=== PATIENT | female | born 1935 | race Caucasian/White ===

== ENCOUNTER 2017-10-13 15:14 | Outpatient (CLI) | payer MEDICARE ==
--- NOTE | 2017-10-13 18:03 | RAD ---
THREE VIEWS LEFT KNEE: Comparison: None. History: Left knee pain for several months. FINDINGS: Three views of the left knee shows no evidence of acute fracture or dislocation. No degenerative saldivar ges are seen. No knee effusion is present. Vascular calcifications are present. IMPRESSION: No significant left knee abnormality. POS: [facility]
== END 2017-10-13 15:15 | disposition home or self-care (01) ==
LOC: SCSRAD 15:14
PROVIDERS: ATTEND Internal Medicine
DX: M25.562 Pain in left knee (principal)

== ENCOUNTER 2018-03-12 22:19 | Observation (INO) | payer MEDICARE ==
[2018-03-12 23:31] LABS: #Basophils 0.1 thou/uL (0.0-0.2); #Eosinphils 0.4 thou/uL (0.0-0.7); #Lymphocytes 2.2 thou/uL (1.20-3.40); #Monocytes 0.6 thou/uL (0.11-0.59); #Neutrophils 2.5 thou/uL (1.40-6.50); %Basophils 1.2 % (0.0-1.0); %Eosinophils 7.1 % (0.0-10.0); %Lymphocytes 38.1 % (21.0-51.0); %Monocytes 10.3 % (0.0-10.0); %Neutrophils 43.3 % (42.0-75.0); Hemoglobin 13.1 g/dL (12.0-16.0); Mean Corpuscular HGB CONC 35.3 g/dL (32.0-36.0); Mean Corpuscular Hemoglobin 32.2 pg (27.0-31.0); Mean Corpuscular Volume 91.1 fl (81.0-99.0); Mean Platelet Volume 7.7 fL (7.4-10.4); Platelet Count 197 thou/uL (130-400); RBC Distribution Width 11.3 % (11.5-14.5); Red Blood Cell (RBC) Count 4.06 mill/uL (4.20-5.40); White Blood Cell (WBC) Count 5.9 thou/uL (4.8-10.8)
--- NOTE | 2018-03-12 23:35 | CT ---
CT OF BRAIN PERFORMED WITHOUT CONTRAST ENHANCEMENT: 03/12/18 HISTORY: Headache. There is generalized ventricular and sulcal prominence. Decreased attenuation of the periventricular white matter is consistent with some chronic ischemic white matter change. There is no signs of intra cerebral hemorrhage or extra-axial fluid collections. The mastoid air cells are clear. There is mucos al change in the right maxillary sinus and a completely opacified left maxillary sinus. Also, changes in the region of the ethmoid air cells are seen. IMPRESSION: No acute intracranial abnormalities. POS: [facility]
[2018-03-12] MEDS ORDERED: Metoclopramide HCl 10 MG/2 ML VIAL ONE (23:36)
[2018-03-12] MEDS ORDERED: diphenhydrAMINE 50 MG/ML VIAL ONE (23:36)
[2018-03-12] MEDS ORDERED: methylPREDNISolone Sod Succ/PF 125 MG/2 ML VIAL ONE (23:36)
--- NOTE | 2018-03-12 23:41 | RAD ---
PORTABLE CHEST: 03/12/18 HISTORY: Chest pain. Elevated blood pressure. COMPARISON: 07/10/16 study. Heart size is enlarged. There are postop sternotomy changes. Chronic lung changes are present. The calista kee are demineralized. IMPRESSION: Cardiomegaly. No acute findings. POS: [facility]
[2018-03-12 23:43] LABS: ALT (SGPT) 18 U/L (8-55); AST (SGOT) 22 U/L (5-34); Albumin 3.9 g/dL (3.4-4.8); Alkaline Phosphatase 66 U/L (40-150); Anion Gap 13 mmol/L (10-20); BUN (Urea Nitrogen) 10 mg/dL (9.8-20.1); Bilirubin, Total 0.5 mg/dL (0.2-1.2); Calc. Creatinine Clearance 0 mL/min (70-130); Carbon Dioxide 25 mmol/L (23-31); Chloride 104 mmol/L (98-107); Estimated GFR-MDRD 62; Globulin 2.9 g/dL (2.4-3.5); Glucose 95 mg/dL (83-110); Potassium 4.2 mmol/L (3.5-5.1); Protein, Total 6.8 g/dL (6.0-8.3); Sodium 138 mmol/L (136-145)
[2018-03-12 23:45] LABS: CKMB 1.7 ng/mL (0-6.6); Troponin I Less than 0.010 ng/mL (< 0.028)
[2018-03-13 01:09] LABS: Bilirubin Negative (Negative); Blood, Urine Negative (Negative); Clarity Clear (Clear); Glucose, Urine (Dipstick) Negative (Negative); Leukocyte Small (Negative); Nitrite Negative (Negative); Protein, Urine (Dipstick) Negative (Neg-Trace); Urobilinogen 0.2 mg/dL (0.2-1.0)
[2018-03-13 01:12] LABS: Bacteria/HPF None Seen HPF (None Seen); Hyaline Casts/LPF NONE SEEN LPF (0-3 Hyaline); RBC/HPF None Seen HPF (0-3); Squamous Epithelial 0-3 HPF (0-3); WBC/HPF 0-3 HPF (0-3)
[2018-03-13 02:45] VITALS: BMI 22.4
[2018-03-13 02:52] LABS: Troponin I Less than 0.010 ng/mL (< 0.028)
--- NOTE | 2018-03-13 03:01 | PDOC.FPRHP ---
- History of Present Illness Chief Complaint: elevated BP, headache History of Present Illness: 82 yo F w/ PMH of cad, s/p cabg in 2001, prior LA after cabg, cva, chf ef 35-40 % presented to the ED with cc of elevated bp. Pt reports her BP has been elevated yesterday throughout the day in the 160s-190s systolic. She has been seeing Dr. Edwards in the OP setting who has been titrating her BP medications. With the elevated BP she does not a posterior headache that she describes as pressure like and rated it 7/10 originally and currently rates pain 2/10. She denies cp, sob, nvdc, weakness, numbness, tingling, changes in vision. Denies any other associated symptoms. Her headache was relieved by benadryl and an antiemetic. Her ct brain was negative for any acute intracranial process and cxr was negative for acute intrathroacic process. Her troponins have been negative X2. Denies recent swelling. ED Course: phenergan, benadryl, NS 500ml, methylprednisolone 125mg - Allergies/Adverse Reactions Allergies Allergy/AdvReac Type Severity Reaction Status Date / Time No Known Drug Allergies Allergy Verified 02/13/15 22:33 - Home Medications Medication Instructions Recorded Confirmed Type Aspirin 81 mg PO DAILY 05/21/14 03/13/18 History Calcium Carbonate [Calcium] 500 mg PO DAILY 05/21/14 03/13/18 History Carvedilol [Coreg] 12.5 mg PO BID 05/21/14 03/13/18 History Clopidogrel Bisulfate [Plavix] 75 mg PO DAILY 05/21/14 03/13/18 History Ezetimibe [Zetia] 10 mg PO DAILY 05/21/14 03/13/18 History Ubidecarenone [CoQ-10] 200 mg PO DAILY 05/21/14 03/13/18 History Vitamin B Complex [B Complex] 1 tablet PO DAILY 05/21/14 03/13/18 History Esomeprazole Magnesium [NexIUM] 20 mg PO 1200 02/13/15 03/13/18 History Loratadine [Claritin] 10 mg PO PRN PRN 10/17/15 03/13/18 History ALPRAZolam [Xanax] 0.25 mg PO Q8HR PRN 07/10/16 03/13/18 History Calcium Carbonate + Vit D 1 tab PO DAILY 07/10/16 03/13/18 History [Caltrate 600 + Vit D] Multivitamin With Minerals 1 tablet PO DAILY 07/10/16 03/13/18 History [Multivitamins with Minerals] Amlodipine Besylate [amLODIPine 2.5 mg PO HS #30 tablet 03/13/18 Rx Besylate] Lisinopril [Zestril] 10 mg PO BID #60 tab 03/13/18 Rx Rosuvastatin Calcium [Crestor] 40 mg PO MWF 03/13/18 03/13/18 History Rosuvastatin [Crestor] 20 mg PO SEEPHYS 03/13/18 03/13/18 History - History PMHx: HTN, HLD, CAD, CABG, h/o CVA, CHF EF 35-40%, PSHx: CABG, Laporotomy, Rt shoulder arthroscopy FHx: NA Social: Denies alcohol, tobacco - Review of Systems General: denies: fever/chills, weight/appetite/sleep changes, night sweats Eyes: denies: eye pain, vision changes ENT: denies: nasal congestion, rhinorrhea Respiratory: denies: cough, congestion, shortness of breath Cardiovascular: denies: chest pain, palpitation, edema Gastrointestinal: denies: nausea, vomiting, diarrhea, constipation Genitourinary: denies: incontinence, polyuria Skin: denies: lesions, jaundice Musculoskeletal: denies: pain, tenderness, arthritis/arthralgias Neurological: reports: other (headache). denies: numbness, syncope, seizure, weakness - Vital signs BP: 195/91 HR: 69 RR: 20 Tmax: 97.6 Pox: 96% on RA Wt: 65Kg - Physical Exam Constitutional: NAD, awake, alert and oriented HEENT: normocephalic and atraumatic, PERRLA, EOMI, conjunctiva clear, grossly normal vision, grossly normal hearing Neck: supple, trachea midline, no LAD, no JVD, no thyromegaly Chest: no-tender to palpation Heart: RRR, normal S1/S2, no murmurs/rubs/gallops, pulses present Lungs: CTAB, no respiratory distress, good air movement, no rales/rhonchi, no wheezing, no retractions Abdomen: soft, non-tender, bowel sounds present, no masses/distention Musculoskeletal: normal structure, normal tone, ROM grossly normal Neurological: no focal deficit Skin: good turgor, capillary refill <2 seconds, no jaundice Heme/Lymphatic: no unusual bruising or bleeding, no petechia Psychiatric: normal mood and affect FMR H&P: Results - Labs Result Diagrams: 03/13/18 05:27 03/13/18 05:27 Lab results: WBC 5.9 thou/uL (4.8-10.8) 03/12/18 23:19 Hgb 13.1 g/dL (12.0-16.0) 03/12/18 23:19 Hct 37.0 % (36.0-47.0) 03/12/18 23:19 MCV 91.1 fl (81.0-99.0) 03/12/18 23:19 Plt Count 197 thou/uL (130-400) 03/12/18 23:19 Neutrophils % 43.3 % (42.0-75.0) 03/12/18 23:19 Sodium 138 mmol/L (136-145) 03/12/18 23:19 Potassium 4.2 mmol/L (3.5-5.1) 03/12/18 23:19 Chloride 104 mmol/L (98-107) 03/12/18 23:19 Carbon Dioxide 25 mmol/L (23-31) 03/12/18 23:19 BUN 10 mg/dL (9.8-20.1) 03/12/18 23:19 Creatinine 0.88 mg/dL (0.6-1.1) 03/12/18 23:19 Glucose 95 mg/dL (83-110) 03/12/18 23:19 Calcium 9.0 mg/dL (7.8-10.44) 03/12/18 23:19 Total Bilirubin 0.5 mg/dL (0.2-1.2) 03/12/18 23:19 AST 22 U/L (5-34) 03/12/18 23:19 ALT 18 U/L (8-55) 03/12/18 23:19 Alkaline Phosphatase 66 U/L (40-150) 03/12/18 23:19 CK-MB (CK-2) 1.7 ng/mL (0-6.6) 03/12/18 23:19 B-Natriuretic Peptide 417.9 pg/mL (0-100) H 03/12/18 23:19 Serum Total Protein 6.8 g/dL (6.0-8.3) 03/12/18 23:19 Albumin 3.9 g/dL (3.4-4.8) 03/12/18 23:19 Urine Ketones Negative mg/dL (Negative) 03/13/18 00:55 Urine Blood Negative (Negative) 03/13/18 00:55 Urine Nitrite Negative (Negative) 03/13/18 00:55 Ur Leukocyte Esterase Small (Negative) H 03/13/18 00:55 Urine RBC None Seen HPF (0-3) 03/13/18 00:55 Urine WBC 0-3 HPF (0-3) 03/13/18 00:55 Ur Squamous Epith Cells 0-3 HPF (0-3) 03/13/18 00:55 Urine Bacteria None Seen HPF (None Seen) 03/13/18 00:55 - EKG Interpretation EKG: NSR, rate 62, Q waves inferior leads - Radiology Interpretation CT scan - head Status: report reviewed by me (No acute intracranial process) Chest x-ray Status: report reviewed by me (No acute intrathoracic process) FMR H&P: A/P - Problem List (1) Hypertensive urgency Current Visit: Yes Status: Acute Code(s): I16.0 - HYPERTENSIVE URGENCY (2) HTN (hypertension) Current Visit: No Status: Acute Code(s): I10 - ESSENTIAL (PRIMARY) HYPERTENSION (3) Headache Current Visit: Yes Status: Acute Code(s): R51 - HEADACHE (4) HFrEF (heart failure with reduced ejection fraction) Current Visit: Yes Status: Acute Code(s): I50.20 - UNSPECIFIED SYSTOLIC ( CONGESTIVE) HEART FAILURE (5) Dyslipidemia Current Visit: No Status: Acute Code(s): E78.5 - HYPERLIPIDEMIA, UNSPECIFIED (6) CAD (coronary artery disease) Current Visit: No Status: Acute Code(s): I25.10 - ATHSCL HEART DISEASE OF [place] CORONARY ARTERY W/O ANG PCTRS - Plan 1) HTN urgency: Vs severe uncontrolled hypertension. Elevated pressures today into the 190s, pt treated for headache only which resulted in decreased bp to the 150s systolic. Will continue to monitor pressures and give hydsralazine prn for bp >180/110. Trend troponins, negative X2 thus far. Cont home medications of lisinopril 7.5mg BID. 2)HTN: see above, continue home medications 3) Headache: possibly related to #1, tylenol prn for pain control. 4) HFrEF: continue home medicaiotns, BNP 400s 5) CAD: stable, continue home medications 6) HLD: home medications 7) PPx: SCDs and pepcid for DVT and GI ppx respectively 8) Code status: Pt wishes to be full code, spoke with pt regarding code status. Disposition/LOS: stable, </= 2 days FMR H&P: Upper Level - Pertinent history 82 yo CF with PMHx of HTN, CAD s/p CABG, CVA, and CHF with EF 35-40% presented to ED for elevated BP and worsening JOSE. Pt endorses difficulty with BP control over last month with titration of her meds by PCP during this time. Last change was yesterday when increased Lisinopril 2.5mg from 2 to 3 pills in AM. Taking 3 pills at night. She has been checking her BP multiple times per day over last few days which is causing some anxiety. Today, BP running in 190s/90s. Pt endorses 3 day hx of intermittent occipital JOSE that worsened today. 7/10 pain. Not relieved with Tylenol. She decided to go to ED for evaluation due to this. Denies chest pain today. Endorses mild chest discomfort yesterday that she says occurred following lifting multiple heavy objects. She has had a couple MIs and CABG in . Many stress tests and caths. Dr. Harper is her general science teacher. Pt s JOSE mostly resolved after IV Benadryl, methylprednisolone, and reglan. Observation overnight with expected 1-2 day stay. - Pertinent findings Gen: alert, pleasant, NAD CV: RRR, no m/r/g Lungs: CTAB, no rales/rhonchi, no increased WOB Abd: soft, NT/ND Ext: no edema - Plan Date/Time: 03/13/18 0259 1. HTN urgency. Initially improved after treating JOSE in ED. Will continue home meds and use prn hydralazine. Trend trops and repeat labs in AM to ensure no sign of end organ damage. Anxiety likely partial component. Discuss changes to BP regimen in AM. Will reach out to PCP, Dr. Jacobs, for more info. Lisinopril currently at 15 mg per day with current regimen. Observation with 1- 2 day stay likely. 2. Acute JOSE. Improved with IV meds. BP improved with tx. If recurs, will retreat and monitor. Continue working for BP improvement as well. 3. HTN. See above. 4. CAD. Pt did not endorse any chest pain today. Yesterday appears more MSK and very mild. Extensive heart history followed by Dr. Harpre. She endorses numerous false positive stress tests as well as not wanting to have a cardiac cath. EKG shows no ischemic changes. There seems to be no current indication for any testing. Will trend trops to ensure no damage from HTN urgency. 4. HFrEF. Home meds. BNP mildly elevated. No sign of fluid overload or exacerbation. 5. HLD. Home med I, Fidel Rose, have evaluated this patient and agree with findings/plan as outlined by international account representative resident. Pertinent changes/additions are listed here. Attending Addendum - Attending Addendum Date/Time: 03/13/18 7840 I personally evaluated the patient and discussed the management with Dr. Seals/ [place]. I agree with the History, Examination, Assessment and Plan documented above with any addition or exceptions noted below. Patient here with elevated blood pressures despite her titration of BP meds by outpatient PCP. She had increasing BP overnight and presented to ER with elevatd BP and headache that improved with Benadryl and Reglan. This morning, she feels well. We have discussed her case with her outpatient PCP and he has recommended discharge with increase in Lisinopril as well as addition of PRN Norvasc. Her enzymes are negative and EKG normal. BP improved this morning. No evidence of CHF exacerbation. She will be discharged home this morning with close follow up with PCP that has already been arranged.
[2018-03-13] MEDS ORDERED: Ondansetron HCl/PF 4 MG/2 ML Vial IVP PRN (03:19)
[2018-03-13] MEDS ORDERED: Acetaminophen 325 MG TAB PO PRN (03:19)
[2018-03-13] MEDS ORDERED: Ondansetron ODT 4 MG TAB PO PRN (03:19)
[2018-03-13] MEDS ORDERED: hydrALAZINE 20 MG/ML VIAL SLOW IVP PRN (03:22)
[2018-03-13] MEDS ORDERED: ALPRAZolam 0.25 MG TAB PO PRN (03:23)
[2018-03-13] MEDS ORDERED: Loratadine 10 MG TAB PO PRN (03:23)
[2018-03-13] MEDS ORDERED: Metoclopramide HCl 10 MG/2 ML VIAL IVP PRN (03:25)
[2018-03-13] MEDS ORDERED: diphenhydrAMINE 50 MG/ML VIAL IVP PRN (03:25)
[2018-03-13] MEDS ORDERED: Lisinopril 10 MG TAB PO SCH ×2 (03:45→09:00)
[2018-03-13 05:48] LABS: #Lymphocytes 0.8 thou/uL (1.20-3.40); #Monocytes 0.1 thou/uL (0.11-0.59); #Neutrophils 4.1 thou/uL (1.40-6.50); %Basophils 0.1 % (0.0-1.0); %Eosinophils 0.5 % (0.0-10.0); %Lymphocytes 15.6 % (21.0-51.0); %Monocytes 1.3 % (0.0-10.0); %Neutrophils 82.5 % (42.0-75.0); Hemoglobin 13.1 g/dL (12.0-16.0); Mean Corpuscular HGB CONC 33.6 g/dL (32.0-36.0); Mean Corpuscular Hemoglobin 31.3 pg (27.0-31.0); Mean Corpuscular Volume 93.2 fl (81.0-99.0); Mean Platelet Volume 7.7 fL (7.4-10.4); Platelet Count 224 thou/uL (130-400); RBC Distribution Width 11.8 % (11.5-14.5); Red Blood Cell (RBC) Count 4.18 mill/uL (4.20-5.40)
[2018-03-13 06:30] LABS: Anion Gap 8 mmol/L (10-20); BUN (Urea Nitrogen) 9 mg/dL (9.8-20.1); Calc. Creatinine Clearance 53 mL/min (70-130); Carbon Dioxide 26 mmol/L (23-31); Chloride 107 mmol/L (98-107); Estimated GFR-MDRD 64; Glucose 138 mg/dL (83-110); Potassium 3.9 mmol/L (3.5-5.1); Sodium 137 mmol/L (136-145)
[2018-03-13 06:35] LABS: Troponin I Less than 0.010 ng/mL (< 0.028)
[2018-03-13 08:23] VITALS: TEMP 98.4
[2018-03-13] MEDS ORDERED: Carvedilol 25 MG TAB PO SCH (09:00)
[2018-03-13] MEDS ORDERED: Calcium Carbonate + Vit D 1 TAB PO SCH (09:00)
[2018-03-13] MEDS ORDERED: Rosuvastatin 20 MG TAB PO SCH (09:00)
[2018-03-13] MEDS ORDERED: Famotidine 20 MG TAB PO SCH (09:00)
[2018-03-13] MEDS ORDERED: Multivitamin W/ Minerals 1 TAB PO SCH (09:00)
[2018-03-13] MEDS ORDERED: Folic Acid/Vit B Comp W-C PO SCH (09:00)
[2018-03-13] MEDS ORDERED: Clopidogrel Bisulfate 75 MG TAB PO SCH (09:00)
[2018-03-13] MEDS ORDERED: Calcium Carbonate 500 MG TAB PO SCH (09:00)
[2018-03-13] MEDS ORDERED: Ubidecarenone 50 MG CAP PO SCH (09:00)
[2018-03-13] MEDS ORDERED: Lisinopril 2.5 MG TAB PO SCH (09:00)
[2018-03-13] MEDS ORDERED: Ezetimibe 10 MG TAB PO SCH (09:00)
[2018-03-13 09:52] VITALS: BP 155/67
--- NOTE | 2018-03-13 13:54 | DIS-2 ---
DATE OF ADMISSION: 03/13/2018 DATE OF DISCHARGE: 03/13/2018 RESIDENT: Dr. Ba. ADMITTING ATTENDING: Dr. Oliver. DISCHARGE ATTENDING: Dr. Oliver. CONSULTATIONS: None. PROCEDURES: The patient underwent a brain CT on 03/12/2018 that showed no acute intracranial abnormalities. The patient also underwent a chest x-ray on 03/12/2018 that showed cardiomegaly , no acute findings. PRIMARY DIAGNOSES: 1. Hypertensive urgency. 2. Hypertension. 3. Headache. 4. Heart failure with reduced ejection fraction. 5. Dyslipidemia. 6. Coronary artery disease. DISCHARGE MEDICATIONS: 1. Vitamin B complex 1 tablet p.o. daily. 2. Calcium carbonate 500 mg p.o. daily. 3. Plavix 75 mg p.o. daily. 4. Aspirin 81 mg p.o. daily. 5. Zetia 10 mg p.o. daily. 6. CoQ10 200 mg p.o. daily. 7. Coreg 12.5 mg p.o. b.i.d. 8. Nexium 20 mg p.o. daily. 9. Claritin 10 mg p.o. p.r.n. 10. Calcium carbonate plus vitamin D one tab p.o. daily. 11. Multivitamin 1 tablet daily. 12. Xanax 0.25 mg p.o. q.8 hour p.r.n. 13. Rosuvastatin 40 mg p.o. on Friday, Friday, and Friday. 14. Amlodipine 2.5 mg p.o. at bedtime. 15. Lisinopril 10 mg p.o. b.i.d. 16. Rosuvastatin 20 mg p.o. on Friday, , and Friday. DISCONTINUED MEDICATIONS: Lisinopril 7.5 mg b.i.d. HISTORY OF PRESENT ILLNESS AND HOSPITAL COURSE: The patient is an 82-year-old female with past medical history of CAD status post CABG in 2001, prior myocardial infarction, CVA, and CHF with ejection fraction of 35%-40%, who presents to the ED with chief complaint of elevated BP. The patient reports that her blood pressure has been elevated since yesterday and throughout the day in the 160s to 190 systolic. She has been seeing Dr. Jacobs in the outpatient setting who has been titrating her blood pressure medications over the last month. With the elevated BP, she does note a posterior headache that she describes as pressure-like and rates 7/10 originally and currently rates pain 2/10. She denies any chest pain, shortness of breath, nausea, vomiting, diarrhea, constipation, weakness, numbness, tingling, changes in vision. She denies any other associated symptoms. Her headache was relieved by Benadryl and an antiemetic. Her CT brain was negative for any acute intracranial process and her chest x-ray was negative for acute intrathoracic process. Her troponins have been negative x2. She denies any recent swelling. In the ER, she was given Phenergan, Benadryl, and a normal saline 500 mL bolus and methylprednisolone 125 mg. During this hospitalization, the patient did not have any notable lab values as far as troponins go, she was negative x3. She did have a brain natriuretic peptide 417.9, which is elevated, as we do not have a good baseline, she has ranged from 200 and 300s previous to this. She did not have any signs of clinical heart failure and so it was determined at that time that she was not need to be treated for heart failure exacerbation. Patient's blood pressure ranged from 178 systolic down to 136 systolic on the day of discharge. The patient otherwise had no further complications. Her PCP, Dr. Jacobs was called during her hospitalization and was consulted as to what he would like to have for the management options going forward. It was decided between the primary team and Dr. Jacobs that we would increase her lisinopril as well as to give her amlodipine to begin with parameters at nighttime with close follow up with Dr. Jacobs as an outpatient. The patient otherwise understands that she does have anxiety about her heart disease, otherwise did not warrant any further workup at this time. Patient otherwise tolerated the hospitalization well and was discharged on appropriate condition. DISPOSITION: Stable. DISCHARGE INSTRUCTIONS: 1. Location: She will be discharged home in the care of herself. 2. Diet: Will be a heart healthy diet. 3. Activity will be as tolerated. 4. Follow up will be with her PCP, Dr. Jacobs in 3 days to ensure for the compliance of her blood pressure control as well as long-term control of her anxiety. KULDIP
--- NOTE | 2018-03-20 16:10 | EKG ---
Test Reason : Blood Pressure : / mmHG Vent. Rate : 062 BPM Atrial Rate : 062 BPM P-R Int : 140 ms QRS Dur : 094 ms QT Int : 440 ms P-R-T Axes : 040 010 040 degrees QTc Int : 446 ms Sinus rhythm with occasional Premature ventricular complexes and Fusion complexes Possible Left atrial enlargement Inferior infarct , age undetermined Abnormal ECG Confirmed by ELIZA MELO, ABHISHEK ([id number]), book or script editor RAFAT SAHU ([id number]) on 03/20/2018 4:09:46 PM Referred By: Confirmed By:ABHISHEK KAY MD
== END 2018-03-13 11:03 | disposition home or self-care (01) ==
LOC: SCSER 22:19 → 2SW 03-13 00:15
PROVIDERS: ADMIT Student in an Organized Health Care Education/Training Program; ATTEND Student in an Organized Health Care Education/Training Program
DX: I16.0 Hypertensive urgency (principal); I11.0 Hypertensive heart disease with heart failure; I50.20 Unspecified systolic (congestive) heart failure; E78.5 Hyperlipidemia, unspecified; I25.10 Atherosclerotic heart disease of native coronary artery without angina pectoris; I25.2 Old myocardial infarction; Z86.73 Personal history of transient ischemic attack (TIA), and cerebral infarction without residual deficits; Z79.82 Long term (current) use of aspirin; Z79.02 Long term (current) use of antithrombotics/antiplatelets; Z79.899 Other long term (current) drug therapy; Z95.1 Presence of aortocoronary bypass graft
CPT/HCPCS: 70450; 71045; 80048; 80053; 82553; 83880; 84484 ×3; 85025 ×2; 93005; 96365; 96375; 99285; G0378; 36415; 81003; 81015; J1200; J2765; J2930

== ENCOUNTER 2018-04-01 08:52 | Observation (INO) | payer MEDICARE ==
[2018-04-01 09:28] LABS: #Basophils 0.1 thou/uL (0.0-0.2); #Eosinphils 0.4 thou/uL (0.0-0.7); #Lymphocytes 1.8 thou/uL (1.20-3.40); #Monocytes 0.7 thou/uL (0.11-0.59); #Neutrophils 2.3 thou/uL (1.40-6.50); %Basophils 1.1 % (0.0-1.0); %Eosinophils 7.5 % (0.0-10.0); %Lymphocytes 33.9 % (21.0-51.0); %Monocytes 12.5 % (0.0-10.0); Hemoglobin 12.4 g/dL (12.0-16.0); Mean Corpuscular HGB CONC 33.5 g/dL (32.0-36.0); Mean Corpuscular Hemoglobin 31.5 pg (27.0-31.0); Mean Platelet Volume 6.8 fL (7.4-10.4); Platelet Count 283 thou/uL (130-400); RBC Distribution Width 11.8 % (11.5-14.5); Red Blood Cell (RBC) Count 3.92 mill/uL (4.20-5.40); White Blood Cell (WBC) Count 5.2 thou/uL (4.8-10.8)
[2018-04-01 09:40] LABS: Prothrombin Time 13.3 SEC (12.0-14.7)
[2018-04-01 09:41] LABS: PTT 36.6 SEC (22.9-36.1)
[2018-04-01 09:51] LABS: ALT (SGPT) 16 U/L (8-55); AST (SGOT) 19 U/L (5-34); Albumin 3.6 g/dL (3.4-4.8); Alkaline Phosphatase 72 U/L (40-150); Anion Gap 9 mmol/L (10-20); BUN (Urea Nitrogen) 12 mg/dL (9.8-20.1); Bilirubin, Total 0.5 mg/dL (0.2-1.2); CK (CPK) 43 U/L (29-168); Calc. Creatinine Clearance 0 mL/min (70-130); Carbon Dioxide 28 mmol/L (23-31); Chloride 105 mmol/L (98-107); Estimated GFR-MDRD 67; Globulin 2.9 g/dL (2.4-3.5); Glucose 91 mg/dL (83-110); Magnesium 2.1 mg/dL (1.6-2.6); Potassium 4.2 mmol/L (3.5-5.1); Protein, Total 6.5 g/dL (6.0-8.3); Sodium 138 mmol/L (136-145)
[2018-04-01 09:56] LABS: CKMB 0.9 ng/mL (0-6.6); Troponin I Less than 0.010 ng/mL (< 0.028)
[2018-04-01] MEDS ORDERED: Meclizine HCl 25 MG TAB ONE (10:39)
[2018-04-01] MEDS ORDERED: Carvedilol 6.25 MG TAB PO SCH (10:45)
--- NOTE | 2018-04-01 11:32 | CT ---
HEAD CT WITHOUT CONTRAST: COMPARISON: 03/12/18. HISTORY: Dizziness. TECHNIQUE: Noncontrast head CT is performed from the skull base to the skull vertex. FINDINGS: No parenchymal hemorrhage. No extraaxial hematoma. No midline shift. Basilar cisterns are patent. Age-appropriate atrophy. Chronic small-vessel ischemic changes of the white matter are again demons trated. Cortical ellsworth-white matter differentiation is preserved. Ventricles and sulci are patent and symmetric. Adequate aeration of the mastoid air cells. Stable maxillary sinus disease. Calvarium is intact. Cavernous carotid atherosclerosis is noted. IMPRESSION: 1. No significant interval change. 2. No acute intracranial process. 3. Chronic small-vessel ischemic changes of the white matter are noted. 4. Stable sinus disease. POS: [facility]
--- NOTE | 2018-04-01 11:39 | RAD ---
CHEST 1 VIEW: HISTORY: Dizziness. COMPARISON: 03/12/18. FINDINGS: Redemonstration of sternotomy wires. Atherosclerosis of the aorta is noted. Normal cardiac silhouet te. Pulmonary vessels and hilum are normal. Costophrenic angles are clear. Chronic changes in the lung parenchyma, without consolidation or mass. No pneumothorax or osseous abnormalities. IMPRESSION: 1. No significant interval change. 2. Chronic changes in the lung parenchyma. 3. Atherosclerosis. POS: [facility]
[2018-04-01] MEDS ORDERED: Iopamidol 370 76% 100 ML VIAL ONE (13:36)
[2018-04-01] MEDS ORDERED: Acetaminophen 500 MG TAB ONE (13:45)
--- NOTE | 2018-04-01 15:27 | PDOC.FPRHP ---
- History of Present Illness Chief Complaint: dizziness History of Present Illness: 82yo CF with pmhx sig for CAD s/p CABG, carotid stenosis, and prior CVA presents to [facility] for severe dizziness upon waking this morning. This was described as vertigo and was associated with nausea and palpitations. She also took her BP this am and noted it to be in the 170s systolic. She endorses recurrent attacks of vertigo and labile BPs over the last 2 months that have been concerning to her. She was hospitalized approx 3 wks prior for HTN urgency and BP meds were titrated. Since that time, pt has had recurrent and progressively worsening bouts of vertigo and exacerbations in her Bp despite medication adjustments made by pt and her PCP, Dr. Jacobs, as an outpatient. Pts hx is significant for prior Rt occipital CVA found subacutely by Dr. Lemus in 2013 after visual deficits. Today she denies any peripheral weakness, focal deficits, headache or syncopal event. Does state she feels fatigued with generalized weakness, and persistent vertigo which is refractory to meclizine tried in the ED for symptom relief. ED Course: Meclizine & coreg CT head negative - Allergies/Adverse Reactions Allergies Allergy/AdvReac Type Severity Reaction Status Date / Time No Known Drug Allergies Allergy Verified 04/01/18 15:28 - Home Medications Medication Instructions Recorded Confirmed Type Aspirin 81 mg PO HS 05/21/14 04/01/18 History Calcium Carbonate [Calcium] 500 mg PO DAILY 05/21/14 04/01/18 History Carvedilol [Coreg] 12.5 mg PO BID 05/21/14 04/01/18 History Clopidogrel Bisulfate [Plavix] 75 mg PO DAILY 05/21/14 04/01/18 History Ezetimibe [Zetia] 10 mg PO DAILY 05/21/14 04/01/18 History Ubidecarenone [CoQ-10] 200 mg PO DAILY 05/21/14 04/01/18 History Esomeprazole Magnesium [NexIUM] 40 mg PO 1600 02/13/15 04/01/18 History Loratadine [Claritin] 10 mg PO PRN PRN 10/17/15 04/01/18 History ALPRAZolam [Xanax] 0.25 mg PO Q8HR PRN 07/10/16 04/01/18 History Calcium Carbonate + Vit D 1 tab PO DAILY 07/10/16 04/01/18 History [Caltrate 600 + Vit D] Multivitamin With Minerals 1 tablet PO DAILY 07/10/16 04/01/18 History [Multivitamins with Minerals] Rosuvastatin Calcium [Crestor] 40 mg PO MWF 03/13/18 04/01/18 History Rosuvastatin [Crestor] 20 mg PO SEEPHYS 03/13/18 04/01/18 History Lisinopril [Zestril] 5 mg PO BID 04/01/18 04/01/18 History Vitamin B Complex 1 cap PO DAILY 04/01/18 04/01/18 History - History PMHx: 1) CAD s/p CABG, 2) Carotid stenosis- last study 2014 showing 50-69% blockage, 3) HTN, 4) HLD PSHx: 1) CABG- 3 vessel, 2) Bladder surgery, 3) Rt shoulder arthroscopy, 4) Open laparotomy from appendicitis FHx: Significant CAD in all siblings and both parents, CVA in a parent Social: Denies any tobacco, alcohol, or drugs - Review of Systems General: denies: fever/chills, weight/appetite/sleep changes Eyes: reports: vision changes. denies: eye pain ENT: denies: nasal congestion, rhinorrhea Respiratory: denies: cough, congestion, shortness of breath, exercise intolerance Cardiovascular: reports: palpitation. denies: chest pain, edema, paroxysmal nocturnal dyspnea, orthopnea Gastrointestinal: reports: nausea. denies: vomiting, diarrhea, constipation, abdominal pain Genitourinary: denies: incontinence, dysuria Skin: denies: rashes, lesions Musculoskeletal: denies: pain, tenderness, stiffness, swelling Neurological: reports: weakness (generalized), other (vertigo). denies: numbness, syncope, seizure Psychological: denies: anxiety, depression - Vital signs BP: [] HR: [] RR: [] Tmax: [] Pox: []% on [] Wt: [] - Physical Exam Constitutional: NAD, awake, alert and oriented, well developed HEENT: normocephalic and atraumatic, PERRLA, EOMI, conjunctiva clear, no scleral icterus, TM's clear and intact (mild fluid behind bilateral TM), grossly normal hearing, normal nasal mucosa, MMM, oropharynx clear, good dention Neck: supple, trachea midline, no LAD, no JVD, no thyromegaly -Neck: Rt carotid bruit -Chest: sternotomy scar Heart: RRR, pulses present, no edema -Heart: Split S2 Lungs: CTAB, no respiratory distress, good air movement, no rales/rhonchi, no wheezing Abdomen: soft, non-tender, bowel sounds present, no masses/distention Musculoskeletal: normal structure, normal tone, ROM grossly normal Neurological: no focal deficit, CN II-XII intact, normal sensation, DTRs 2+ -Neurological: Equivocal HINTS exam (negative head impulse test- no peripheral saccade). Faint rightward rotatory nystagmus on rightward gaze. Mild difficulty with left arm [id number]. No dysdiadochokinesia. Neg heel to loza. Skin: no rash/lesions, good turgor, capillary refill <2 seconds, no jaundice Heme/Lymphatic: no unusual bruising or bleeding, no purpura, no petechia, no LAD Psychiatric: normal mood and affect, good judgment and insight, intact recent and remote memory FMR H&P: Results - Labs Result Diagrams: 04/02/18 04:58 04/02/18 04:58 Lab results: WBC 5.2 thou/uL (4.8-10.8) 04/01/18 09:21 Hgb 12.4 g/dL (12.0-16.0) 04/01/18 09:21 Hct 36.9 % (36.0-47.0) 04/01/18 09:21 MCV 94.0 fl (81.0-99.0) 04/01/18 09:21 Plt Count 283 thou/uL (130-400) 04/01/18 09:21 Neutrophils % 45.0 % (42.0-75.0) 04/01/18 09:21 Sodium 138 mmol/L (136-145) 04/01/18 09:21 Potassium 4.2 mmol/L (3.5-5.1) 04/01/18 09:21 Chloride 105 mmol/L (98-107) 04/01/18 09:21 Carbon Dioxide 28 mmol/L (23-31) 04/01/18 09:21 BUN 12 mg/dL (9.8-20.1) 04/01/18 09:21 Creatinine 0.82 mg/dL (0.6-1.1) 04/01/18 09:21 Glucose 91 mg/dL (83-110) 04/01/18 09:21 Calcium 9.0 mg/dL (7.8-10.44) 04/01/18 09:21 Total Bilirubin 0.5 mg/dL (0.2-1.2) 04/01/18 09:21 AST 19 U/L (5-34) 04/01/18 09:21 ALT 16 U/L (8-55) 04/01/18 09:21 Alkaline Phosphatase 72 U/L (40-150) 04/01/18 09:21 Creatine Kinase 43 U/L (29-168) 04/01/18 09:21 CK-MB (CK-2) 0.9 ng/mL (0-6.6) 04/01/18 09:21 B-Natriuretic Peptide 246.8 pg/mL (0-100) H 04/01/18 09:21 Serum Total Protein 6.5 g/dL (6.0-8.3) 04/01/18 09:21 Albumin 3.6 g/dL (3.4-4.8) 04/01/18 09:21 Additional comment: BNP near baseline in the 200s. CE negative - EKG Interpretation EKG: NSR. Q waves in inferior leads, no acute ischemia. - Radiology Interpretation CT scan - head Status: report reviewed by me Additional comment: No acute intracranial abnormality FMR H&P: A/P - Problem List (1) Vertigo Current Visit: Yes Status: Acute Priority: High Code(s): R42 - DIZZINESS AND GIDDINESS (2) Hypertensive urgency Current Visit: Yes Status: Acute Priority: High Code(s): I16.0 - HYPERTENSIVE URGENCY (3) CAD (coronary artery disease) Current Visit: No Status: Chronic Priority: Low Code(s): I25.10 - ATHSCL HEART DISEASE OF [place] CORONARY ARTERY W/O ANG PCTRS Qualifiers: Coronary Disease-Associated Artery/Lesion type: bypass graft [place] vs. transplanted heart: [place] heart Associated angina: without angina Qualified Code(s): I25.810 - Atherosclerosis of coronary artery bypass graft(s) without angina pectoris (4) Dyslipidemia Current Visit: No Status: Chronic Code(s): E78.5 - HYPERLIPIDEMIA, UNSPECIFIED - Plan 1) Vertigo- - HINTS exam equivocal; R/O CVA with MRI, neuro checks q4h, fall precautions - meclizine prn - consider rehab for vertigo 2) Carotid bruit (right)- - h/o left sided nonsignificant carotid stenosis (last eval in 2014) - newly documented right bruit, check CTA Head & Neck 3) HTN Urgency- - Labile BPs in recent months & non-responsive to med changes, concern for TIAs vs CVAs - allow permissive HTN x 24hr after event, then medication adjustments 4) CAD s/p CABG- - trops neg, tele monitoring 5) HLD- - continue statin 6) Split S2- - ? h/o CHF, check Echo Disposition/LOS: 1-2 days; consider inpt rehab for vertigo FMR H&P: Upper Level - Plan Date/Time: 04/01/18 1523. I, [Nivia Garcia, DO], am the upper level resident. Attending Addendum - Attending Addendum Date/Time: 04/01/18 7698 I personally evaluated the patient and discussed the management with Dr. Garcia I agree with the History, Examination, Assessment and Plan documented above with any addition or exceptions noted below- 82 yo female with h/o CAD s/p CABG , prior CVA, and carotid stenosis presents with vertigo worsening over the last 2 weeks. Symptom worsened today and was associated with nausea and palpitations. Has also had some decreased appetite and fatigue. Hospitalized 2 weeks ago for hypertensive urgency and medications adjusted. Since then has had labile BP which have been being monitored by her PCP and medications adjusted. PMH/PSH/Meds/SH/ROS/ALL reviewed and agree with residents documentation. BP 149 /67 P 55 RR 16 Exam repeated by me and agree with residents findings. Labs: Hgb=12.4 BUN=12 Cr=0.5 MRI brain - no acute infarct. CTA neck and brain- moderate stenosis left carotid; calcified plaque on right @bifurcation A/P: 1) Vertigo- continue meclizine prn. 2) Hypertensive urgency- ROSALEE improved; continue home meds and adjust as indicated.
[2018-04-01] MEDS ORDERED: Sodium Chloride 0.9% 1,000 ML IV SCH (16:00)
[2018-04-01] MEDS ORDERED: Ondansetron HCl/PF 4 MG/2 ML Vial IVP PRN ×2 (16:00→16:07)
[2018-04-01] MEDS ORDERED: Ondansetron ODT 4 MG TAB SL PRN (16:00)
[2018-04-01] MEDS ORDERED: Ondansetron ODT 4 MG TAB PO PRN (16:07)
[2018-04-01] MEDS ORDERED: Acetaminophen 650 MG Suppository PR PRN (16:07)
[2018-04-01] MEDS ORDERED: Milk Of Magnesia 30 ML UDCUP PO PRN (16:07)
--- NOTE | 2018-04-01 16:13 | MRI ---
BRAIN MRI WITHOUT CONTRAST: HISTORY: Dizziness. Hypertension. Evaluate for CVA. COMPARISON: None. TECHNIQUE: A brain MRI is performed without intravenous Gadolinium administration. Multisequential, multiplanar imaging is performed. FINDINGS: No hemorrhage on the axial gradient echo sequence. No parenchymal mass, mass effect, or midline shift. Age-appropriate atrophy. Cortical ellsworth-white ma tter differentiation is preserved. Ventricles and sulci are patent and symmetric. Central arterial flow voids are maintained. Absent restricted diffusion. Adequate aeration of the mastoid air cells. Sinus disease is again noted. T2 and STIR hypointensity of the left maxillary sinus suggesting complex/inspissated mucus. Other etiologies cannot be exclud ed. Direct visualization is recommended. IMPRESSION: 1. Chronic small-vessel ischemic changes of the white matter. 2. Absent restricted diffusion. No acute infarction. 3. Left sinus opacification as above. Direct visualization is recommended. POS: HARJEET
--- NOTE | 2018-04-01 16:17 | CT ---
CT ANGIOGRAM OF THE HEAD CT ANGIOGRAM OF THE NECK 04/01/18 HISTORY: Dizziness. Tachycardia. Evaluate for CVA. COMPARISON: None. TECHNIQUE: CT angiogram of the head and neck is performed in the axial plane. Three dimensional reformatted imag es are submitted for interpretation. FINDINGS: Cortical ellsworth-white matter differentiation is preserved. No pathologic enhancement of the brain paren chyma. Chronic small vessel ischemic changes of the white matter identified. Intact calvarium. There is opacification of the left nasal cavity and left maxillary sinus. Hyperdens e material is noted suggesting inspissated mucus with possible secretions. Direct visualization is re commended given extension of the left nasal cavity. Air fluid level in the right maxillary sinus is n oted. Adequate aeration of the mastoid air cells. Aerodigestive tract is patent. No mucosal abnormality. Ep iglottis has a normal caliber. Pre-epiglottic fat is preserved. Midline fatty raphae of the tongue is also preserved. Symmetric attenuation of the cleidomastoid muscles. Symmetric attenuation of the carotid and submandi bular glands. Thyroid gland is unremarkable. No evidence of lymphadenopathy by size criteria. Cervical spine vertebral body height is maintained. There is no fracture. Varying degrees of central canal stenosis and foraminal narrowing on the basis of degenerative change. Upper mediastinum and lung apices are unremarkable. CT ANGIOGRAM: The aortic arch has appropriate enhancement and luminal diameter. There is atherosclerosis of the aor tic knob. RIGHT CAROTID: The origin of the right carotid artery has appropriate enhancement and luminal diameter. The right co mmon carotid artery has appropriate enhancement and luminal diameter. There is calcified plaque invol ving the right carotid bifurcation and proximal internal carotid artery. No evidence of high grade st enosis, based upon NASCET criteria. The mid to distal right internal carotid artery has appropriate e nhancement and luminal diameter. There is mild tortuosity of the distal right internal carotid. LEFT CAROTID: The origin of the left carotid artery has appropriate enhancement and luminal diameter. The left comm on carotid artery has appropriate enhancement and luminal diameter. There is calcified plaque with sh ort segment moderate stenosis of the proximal left internal carotid artery. The mid to distal left in ternal carotid artery has appropriate enhancement and luminal diameter. Vertebral arteries have appropriate enhancement and luminal diameter. The origin of both vertebral ar teries is unremarkable. The visualized subclavian arteries are unremarkable. CT ANGIOGRAM OF THE HEAD: The intracranial internal carotid arteries have appropriate enhancement and luminal diameter. There i s calcified plaque in both cavernous segments without significant stenosis. ANTERIOR CIRCULATION: There is symmetric enhancement and luminal diameter of the A1 and M1 segments. Proximal S2 segments a nd MCA branches are unremarkable. Both intracranial vertebral arteries are patent. PICA artery origins are unremarkable. Both vertebral arteries supply normal appearing basilar artery. The left and right P1 segments have symmetric enhan cement and luminal diameter. IMPRESSION: Extensive calcified plaque in the left carotid bifurcation proximal internal carotid artery. Evaluati on is limited by the degree of calcification but there is suggestion of possible short segment modera te stenosis based upon NASCET criteria. Better interrogation with MR angiogram of the neck is recomme nded given the degree of bulky calcification. POS: HARJEET
[2018-04-01] MEDS ORDERED: Diazepam 5 MG TAB PO PRN (17:11)
[2018-04-01] MEDS ORDERED: Non-Formulary Item 1 EACH (Loratadine [Claritin] 10 MG) PO PRN (17:12)
[2018-04-01] MEDS: Meclizine HCl 25 MG TAB PO PRN (17:45)
[2018-04-01] MEDS: ALPRAZolam 0.25 MG TAB PO PRN (20:24)
[2018-04-01] MEDS: Docusate 100 MG CAP PO SCH (20:24)
[2018-04-01] MEDS: Acetaminophen 325 MG TAB PO PRN (20:24)
[2018-04-01] MEDS ORDERED: Atorvastatin Calcium 40 MG TAB PO SCH (21:00)
[2018-04-01] MEDS ORDERED: Clopidogrel Bisulfate 75 MG TAB PO SCH (21:00)
[2018-04-01] MEDS ORDERED: Rosuvastatin 20 MG TAB PO SCH (21:00)
[2018-04-02 05:22] LABS: #Basophils 0.1 thou/uL (0.0-0.2); #Eosinphils 0.3 thou/uL (0.0-0.7); #Lymphocytes 2.3 thou/uL (1.20-3.40); #Monocytes 0.7 thou/uL (0.11-0.59); #Neutrophils 1.6 thou/uL (1.40-6.50); %Basophils 1.5 % (0.0-1.0); %Eosinophils 6.7 % (0.0-10.0); %Lymphocytes 45.8 % (21.0-51.0); %Monocytes 13.9 % (0.0-10.0); %Neutrophils 32.2 % (42.0-75.0); Hemoglobin 11.7 g/dL (12.0-16.0); Mean Corpuscular Hemoglobin 31.8 pg (27.0-31.0); Mean Corpuscular Volume 93.5 fl (81.0-99.0); Mean Platelet Volume 6.9 fL (7.4-10.4); Platelet Count 269 thou/uL (130-400); RBC Distribution Width 11.8 % (11.5-14.5); Red Blood Cell (RBC) Count 3.68 mill/uL (4.20-5.40); White Blood Cell (WBC) Count 4.9 thou/uL (4.8-10.8)
[2018-04-02 05:58] LABS: Anion Gap 7 mmol/L (10-20); BUN (Urea Nitrogen) 11 mg/dL (9.8-20.1); Calc. Creatinine Clearance 58 mL/min (70-130); Calcium 8.9 mg/dL (7.8-10.44); Carbon Dioxide 27 mmol/L (23-31); Chloride 107 mmol/L (98-107); Estimated GFR-MDRD 70; Glucose 85 mg/dL (83-110); Potassium 4.1 mmol/L (3.5-5.1); Sodium 137 mmol/L (136-145)
--- NOTE | 2018-04-02 07:02 | PDOC.FM ---
- Subjective Subjective: Patient doing well this AM. No significant overnight events. Symptoms appear to be positional per patient. She noted the vertigo to be worse when laying on her right side yesterday. Symptoms have improved with meclizine. Patient follows with neurologist yearly. She states that she gets vertigo every so often, but does not have it constantly. No associated tinnitus. - Objective MAR Reviewed: Yes Vital Signs & Weight: Vital Signs (12 hours) Temp Pulse Resp BP BP Pulse Ox 04/02/18 03:11 97.4 F L 60 16 120/54 L 94 L 04/01/18 23:14 97.7 F 56 L 16 119/56 L 93 L 04/01/18 20:00 97.6 F 66 16 150/67 H 95 04/01/18 19:19 95 04/01/18 19:10 97.6 F 66 16 150/67 H 95 Weight Weight 65.862 kg I&O: 03/31/18 04/01/18 04/02/18 06:59 06:59 06:59 Intake Total 559 Balance 559 Result Diagrams: 04/02/18 04:58 04/02/18 04:58 EKG Reviewed by me: Yes Radiology Reviewed by me: Yes <Beverly Brock - Last Filed: 04/02/18 09:13> - Objective Vital Signs & Weight: Vital Signs (12 hours) Temp Pulse Pulse Pulse Pulse Pulse Resp 04/02/18 11:14 97.8 F 58 L 16 04/02/18 08:00 97.8 F 69 16 04/02/18 07:30 61 66 75 59 L 04/02/18 07:12 97.8 F 69 16 04/02/18 03:11 97.4 F L 60 16 BP BP BP BP BP BP Pulse Ox 04/02/18 11:14 139/65 97 04/02/18 08:00 04/02/18 07:30 154/68 H 177/80 H 151/82 H 180/70 H 04/02/18 07:12 141/70 H 96 04/02/18 03:11 120/54 L 94 L Weight Admit Weight 63.276 kg Weight 65.862 kg I&O: 04/01/18 04/02/18 04/03/18 06:59 06:59 06:59 Intake Total 559 Balance 559 Result Diagrams: 04/02/18 04:58 04/02/18 04:58 <Trevor Oliver - Last Filed: 04/02/18 12:01> Phys Exam - Physical Examination Constitutional: NAD HEENT: PERRLA, moist MMs, sclera anicteric Neck: supple Respiratory: no wheezing, clear to auscultation bilateral Cardiovascular: RRR, no significant murmur Gastrointestinal: soft, no distention, positive bowel sounds Musculoskeletal: no edema, pulses present Neurological: non-focal, moves all 4 limbs Psychiatric: normal affect, A&O x 3 Skin: no rash, cap refill <2 seconds <Beverly Brock - Last Filed: 04/02/18 09:13> Dx/Plan (1) Hypertensive urgency Code(s): I16.0 - HYPERTENSIVE URGENCY Status: Acute (2) Vertigo Code(s): R42 - DIZZINESS AND GIDDINESS Status: Acute (3) HTN (hypertension) Code(s): I10 - ESSENTIAL (PRIMARY) HYPERTENSION Status: Chronic (4) CAD (coronary artery disease) Code(s): I25.10 - ATHSCL HEART DISEASE OF [place] CORONARY ARTERY W/O ANG PCTRS Status: Chronic QualifierTitle: Coronary Disease-Associated Artery/Lesion type: bypass graft [place] vs. transplanted heart: [place] heart Associated angina: without angina Qualified Code(s): I25.810 - Atherosclerosis of coronary artery bypass graft(s) without angina pectoris (5) Dyslipidemia Code(s): E78.5 - HYPERLIPIDEMIA, UNSPECIFIED Status: Chronic - Plan Plan: Hypertensive urgency - Labile BP - BP this AM 120/54 - Continue to monitor BP - Restart home medications and adjust as necessary Vertigo - Concern for posterior CVA, but seems consistent with BPP due to positional nature - Allow for permissive hypertension in first 24 hours - Meclizine PRN; pt states it has been helping - Equivocal HINTS exam - MRI brain showed no acute infarct - CTA neck showed extensive calcified plaque in left carotid bifurcation of proximal carotid artery. - MRA neck pending - Echo pending - Continue ASA, high dose statin, and clopidogrel - Attempt adriana's maneuver for symptom relief - Patient would benefit from PT - Consider inpatient rehab CAD s/p CABG - Continue home medications - Trop negative - Telemetry monitoring HLD - Continue high dose statin Hx of prior CVA - Continue home medications Dispo: Stable. Anticipate LOS <48 hours. CODE STATUS: FULL DVT PPX: Lovenox <Beverly Brock - Last Filed: 04/02/18 09:13> Attending Addendum - Attending Addendum Date/Time: 04/02/18 5538 I personally evaluated the patient and discussed the management with Dr. Brock. I agree with the History, Examination, Assessment and Plan documented above with any addition or exceptions noted below. Patient doing well, has some mild improvement in her vertigo. Awaiting MRA results of the neck. Will consult Rehab to see if she would be good candidate for gait training. Her exam is mixed for central versus peripheral causes. No evidence of CVA on MRI. Continue Meclizine and may need outpatient Neurology workup. <Trevor Oliver - Last Filed: 04/02/18 12:01>
[2018-04-02 07:39] VITALS: TEMP 97.8
[2018-04-02] MEDS ORDERED: Sodium Chloride 0.9% 1,000 ML IV SCH (08:45)
[2018-04-02] MEDS ORDERED: Sodium Chloride 0.9% 500 ML IVPB SCH (08:45)
[2018-04-02] MEDS ORDERED: Ubidecarenone 50 MG CAP PO SCH (09:00)
[2018-04-02] MEDS ORDERED: Aspirin 81 mg Enteric Coated Tablet PO SCH (09:00)
[2018-04-02] MEDS ORDERED: Fluticasone Propionate Nasal Spray 16 gm Bottle NASAL SCH (09:00)
[2018-04-02] MEDS ORDERED: Multivitamin W/ Minerals 1 TAB PO SCH (09:00)
[2018-04-02] MEDS ORDERED: Ezetimibe 10 MG TAB PO SCH (09:00)
[2018-04-02] MEDS ORDERED: Calcium Carbonate 500 MG TAB PO SCH (09:00)
[2018-04-02] MEDS ORDERED: Clopidogrel Bisulfate 75 MG TAB PO SCH ×2 (09:00→21:00)
[2018-04-02] MEDS ORDERED: Stress 600 With Zinc 1 TAB PO SCH (09:00)
[2018-04-02] MEDS ORDERED: Calcium Carbonate + Vit D 1 TAB PO SCH (09:00)
[2018-04-02] MEDS: Docusate 100 MG CAP PO SCH (09:16)
[2018-04-02] MEDS: Acetaminophen 325 MG TAB PO PRN (09:19)
[2018-04-02] MEDS: Meclizine HCl 25 MG TAB PO PRN (09:19)
[2018-04-02] MEDS: ALPRAZolam 0.25 MG TAB PO PRN (09:19)
[2018-04-02 10:13] VITALS: BMI 23.4
--- NOTE | 2018-04-02 16:51 | MRI ---
MRA OF THE NECK WITH AND WITHOUT IV CONTRAST 04/02/18 INDICATION: Left carotid stenosis evaluation. COMPARISON: Prior CTA evaluation of the head and neck dated 04/01/18. TECHNIQUE: Multiplanar and multisequence MRA images were obtained in the neck with and without contrast utilizin g 15 mL of Multihance. FINDINGS: There is some mild narrowing involving the proximal left ICA. There is moderate to severe narrowing i nvolving the origin of the right ECA. The right ICA appears widely patent throughout its visualized c ervical course. The left and right vertebral artery appear patent throughout its entire course. The v isualized aspects of the subclavian arteries appear widely patent. The left common carotid, brachioce phalic and left subclavian artery origins appear widely patent. IMPRESSION: No hemodynamically significant stenosis involving the left internal carotid artery. There is some mil d luminal caliber narrowing involving the proximal aspect of the left ICA likely related to atheroscl erotic plaque. There is moderate to severe narrowing involving the origin of the right ECA. POS: HARJEET
[2018-04-02] MEDS ORDERED: Rosuvastatin 10 MG TAB PO SCH (17:12)
[2018-04-02 18:45] VITALS: BP 152/67
[2018-04-03] MEDS ORDERED: Enoxaparin Sodium 40 MG/0.4 ML SYRINGE SC SCH (09:00)
--- NOTE | 2018-04-03 12:47 | DIS-2 ---
DATE OF ADMISSION: 04/01/2018 DATE OF DISCHARGE: 04/02/2018 ADMITTING ATTENDING: Dr. Kian Springer DISCHARGE ATTENDING: Dr. Trevor Oliver RESIDENT: Dr. Beverly Brock CONSULTS: None. PROCEDURES: 1. Chest x-ray: No significant interval change. Chronic changes in lung parenchyma. Atheroscler osis. 2. Brain CT: No significant interval change. No acute intracranial process. Chronic small vessel ischemic changes of the white matter noted. Stable sinus disease. 3. Brain MRI without contrast showed chronic small vessel ischemic changes of the white matter. Abs ent restricted diffusion. No acute infarct. There was a left sinus opacification. 4. Extensive calcified plaque from left carotid bifurcation proximal internal carotid artery. Evalu ation was limited by degree of calcification, but there is suggestion of possible short segment moder ate stenosis. 5. Neck MRA. No hemodynamically significant stenosis involving left internal carotid artery. There is some mild luminal caliber narrowing involving proximal aspect of left ICA likely related to ather osclerotic plaque. There is moderate to severe narrowing involving the origin of the right ICA. PRIMARY DIAGNOSES: 1. Hypertensive urgency. 2. Vertigo, likely benign paroxysmal positional vertigo. SECONDARY DIAGNOSES: 1. Hypertension. 2. Coronary artery disease. 3. Dyslipidemia. DISCHARGE MEDICATIONS: 1. Meclizine 25 mg oral every 8 hours as needed. 2. Calcium carbonate 500 mg oral daily. 3. Clopidogrel bisulfate 75 mg oral daily. 4. Aspirin 81 mg oral at bedtime. 5. Ezetimibe 10 mg oral daily. 6. CoQ10 200 mg oral daily. 7. Carvedilol 12.5 mg oral twice daily. 8. Esomeprazole, magnesium 40 mg oral daily. 9. Loratadine 10 mg oral as needed. 10. Calcium carbonate plus vitamin D 1 tablet p.o. daily. 11. Multivitamin with minerals 1 tablet oral daily. 12. Alprazolam 0.25 mg oral every 8 hours as needed. 13. Rosuvastatin calcium 40 mg oral Friday, Friday, and Friday. 14. Simvastatin 20 mg oral Friday, , Friday, Friday. 15. Vitamin B complex 1 capsule oral daily. 16. Lisinopril 5 mg oral twice daily. DISCONTINUED MEDICATIONS: None. HISTORY OF PRESENT ILLNESS AND HOSPITAL COURSE: This is an 82-year-old female with past medical hist ory significant for coronary artery disease, status post CABG, carotid stenosis and prior CVA who pre sents for severe dizziness upon walking this a.m. This was described as vertigo and was associated w ith nausea and palpitations. She also took her blood pressure the morning of admission and noted to be in the 170 systolic. The patient did endorses recurrent attacks of vertigo and elevated blood pre ssures over the last 2 months that have been concerning. She was hospitalized approximately 3 weeks prior for hypertensive urgency and blood pressure meds were titrated. Since that time, the patient h as had recurrent progressively worsening bouts of vertigo and exacerbation. Her blood pressure medic ation adjustments made by the patient and her PCP, Dr. Jacobs, as an outpatient. The patient's his tory is significant for prior right occipital CVA found subacutely by Dr. Lemus in 2013 after visua l deficits. The day of admission, she denied any peripheral weakness, focal deficits, headaches or s yncopal events. She does state she feels fatigued with generalized weakness and persistent vertigo w hich is refractory to meclizine at the time of admission. The patient remained stable throughout the course of her hospital stay. She has continued on meclizi ne and her symptoms did improve over the course of the next day. Of note, the patient states that wh en at rest she does not have vertigo symptoms. However, when she moves her head positionally, partic ularly to the right she notes that the symptoms appear to be much more severe. Several studies were performed to rule out posterior stroke as the patient does have a history of prior CVA, a brain CT, M RI without contrast, and CT standing [place] of [place] angio with contrast and neck MRA were performed, all whi ch were negative for evidence of stroke. The patient's symptoms did improve. It was recommended kandis t the patient be admitted to inpatient rehab for continued gait training and strengthening. However, Physical Therapy did see her during her hospitalization and discharged her to the walking program. Thus, the patient was not able to proceed with inpatient rehab. However, a prescription was given fo r the patient to do outpatient physical therapy so that she could continue to have these services whi le at home. This was voiced with the patient and she understood and [facility]. The patient was advised to follow closely with her primary care [facility] to have her vertigo fully evaluated. She may benefit from physical therapy specifically for vert igo. DISPOSITION: Stable. DISCHARGE INSTRUCTIONS: 1. Location: Home with PT. 2. Diet: Heart healthy diet. 3. Activity as tolerated. 4. The patient is to follow up with Dr. Jacobs, her primary care physician within 7 days of discha rge from the hospital. In addition, she is advised to schedule an appointment with Dr. Lemus, her neurologist, to be evaluated for recent symptoms and to notify him of the updates from this hospitali zation. Patient was understanding and agreeable with the plan.
== END 2018-04-02 14:46 | disposition home or self-care (01) ==
LOC: ERS 08:52 → 2SE 14:08
PROVIDERS: ADMIT Family Medicine; ATTEND Family Medicine
DX: R42 Dizziness and giddiness (principal); I25.10 Atherosclerotic heart disease of native coronary artery without angina pectoris; I16.0 Hypertensive urgency; I10 Essential (primary) hypertension; I65.23 Occlusion and stenosis of bilateral carotid arteries; E78.5 Hyperlipidemia, unspecified; Z86.73 Personal history of transient ischemic attack (TIA), and cerebral infarction without residual deficits; Z79.82 Long term (current) use of aspirin; Z79.02 Long term (current) use of antithrombotics/antiplatelets; Z79.899 Other long term (current) drug therapy; Z95.1 Presence of aortocoronary bypass graft
CPT/HCPCS: 70450; 70496; 70498; 70549; 70551; 71045; 80048; 80053; 82550; 82553; 83735; 83880; 84484; 85025 ×2; 85610; 85730; 93005; 93306; 96360; 96361; 97116; 97139 ×3; 97530; 97535; 99285; G0378; G8978; G8979; G8980; G8987; G8988; G8989; 36415; G8996-GN-CH; G8997-GN-CH; G8998-GN-CH

== ENCOUNTER 2018-10-05 18:28 | Emergency (ER) | payer MEDICARE | END 2018-10-05 19:15 | disposition home or self-care (01) | LOC: SCSER 18:28 | DX: I10 Essential (primary) hypertension (principal); I25.2 Old myocardial infarction; I25.10 Atherosclerotic heart disease of native coronary artery without angina pectoris; E78.5 Hyperlipidemia, unspecified; Z86.73 Personal history of transient ischemic attack (TIA), and cerebral infarction without residual deficits; F41.9 Anxiety disorder, unspecified; Z79.899 Other long term (current) drug therapy; Z79.82 Long term (current) use of aspirin | CPT/HCPCS: 99283 ==

== ENCOUNTER 2019-03-09 09:03 | Observation (INO) | payer MEDICARE ==
--- NOTE | 2019-03-09 09:27 | CT ---
CT Brain WO Con: 03/09/2019 9:14 AM CLINICAL HISTORY: Stroke protocol with left-sided weakness that began at 2300 hours last night. IMAGING TECHNIQUE: Multiple CT images were obtained of the brain without IV contrast. COMPARISON: CT the brain dated April 01, 2018 FINDINGS: Infarct: No acute infarct evident. Hemorrhage: None. Hydrocephalus: None.. Basal cisterns: Normal. Cerebral parenchyma: There is stable moderate chronic small vessel white matter ischemic change.. Midline shift: None. Cerebellum: Normal. Brainstem: Normal. OTHER: Calvarium: Normal. Visualized Paranasal sinuses: There is opacity present within the left ethmoid air cells as well as m axillary sinuses.. Extracranial soft tissues:Normal IMPRESSION: 1. No acute intracranial abnormality. 2. Stable moderate chronic small vessel white matter ischemic change. 3. Mild paranasal sinus disease 4. Findings called to Dr. Mcgarry at 9:22 AM on March 09, 2019
[2019-03-09 09:31] LABS: #Eosinphils 0.5 thou/uL (0.0-0.7); #Lymphocytes 1.7 thou/uL (1.20-3.40); #Monocytes 0.6 thou/uL (0.11-0.59); #Neutrophils 3.2 thou/uL (1.40-6.50); %Basophils 0.7 % (0.0-1.0); %Eosinophils 7.8 % (0.0-10.0); %Lymphocytes 28.4 % (21.0-51.0); %Monocytes 9.3 % (0.0-10.0); %Neutrophils 53.7 % (42.0-75.0); Hemoglobin 12.8 g/dL (12.0-16.0); Mean Corpuscular HGB CONC 32.2 g/dL (32.0-36.0); Mean Corpuscular Hemoglobin 31.3 pg (27.0-31.0); Mean Corpuscular Volume 97.3 fL (78.0-98.0); Mean Platelet Volume 7.9 fL (7.4-10.4); Platelet Count 247 thou/uL (130-400); RBC Distribution Width 11.9 % (11.5-14.5); Red Blood Cell (RBC) Count 4.09 mill/uL (4.20-5.40)
[2019-03-09 09:34] LABS: PTT 31.7 SEC (22.9-36.1); Prothrombin Time 13.5 SEC (12.0-14.7)
--- NOTE | 2019-03-09 09:50 | CT ---
CTA of the head with and without IV contrast and 3-D reformatted imaging. CTA of the neck with IV contrast and 3-D reformatted imaging 3 D Volume Rendering: DATE: 03/09/2019 9:15 AM HISTORY: Altered mental status, stroke COMPARISON: None FINDINGS: Right: CCA:Mild stenosis distally due to calcific plaque ICA: Limited by degree of motion. Calcific plaque at the bulb results in mild stenosis. Mild calcific ation, within the distal, intracranial aspect. MCA:No significant stenosis. LINDA:No significant stenosis. TRACTOR CRANE OPERATOR:No significant stenosis. LEFT: CCA:Moderate to severe stenosis at the distal aspect, just proximal to the bulb as result of bulky ca lcific plaque ICA:Moderate focal stenosis of the carotid bulb. Prominent distortion by motion. Mild calcific plaque at the distal, intracranial aspect MCA:No significant stenosis. LINDA:No significant stenosis. TRACTOR CRANE OPERATOR:No significant stenosis. Vertebrobasilar System: Left Vertebral:No significant stenosis. Right Vertebral:No significant stenosis. Basilar:No significant stenosis. IMPRESSION: Scattered atherosclerotic disease of the neck, and skull base, most pronounced at the distal left CCA , and left carotid bulb, with moderate to severe focal stenosis. Telephone call findings placed to ER physician Ken Mcgarry, 0940 hours. Code CR
[2019-03-09 09:56] LABS: ALT (SGPT) 14 U/L (8-55); AST (SGOT) 21 U/L (5-34); Albumin 3.7 g/dL (3.4-4.8); Alkaline Phosphatase 94 U/L (40-150); Anion Gap 13 mmol/L (10-20); BUN (Urea Nitrogen) 13 mg/dL (9.8-20.1); Bilirubin, Total 0.3 mg/dL (0.2-1.2); CK (CPK) 109 U/L (29-168); Calc. Creatinine Clearance 0 mL/min (70-130); Calcium 9.3 mg/dL (7.8-10.44); Carbon Dioxide 21 mmol/L (23-31); Chloride 108 mmol/L (98-107); Estimated GFR-MDRD 55; Globulin 3.3 g/dL (2.4-3.5); Glucose 136 mg/dL (83-110); Potassium 4.1 mmol/L (3.5-5.1); Sodium 138 mmol/L (136-145)
--- NOTE | 2019-03-09 10:10 | RAD ---
PA AND LATERAL CHEST: History: Facial droop. Altered mental status. Comparison: 04-01-18 FINDINGS: Heart size is enlarged. There are post op sternotomy changes. Lungs are clear of any infiltrative pro cess. Bones appear demineralized. IMPRESSION: 1. Mild cardiomegaly. 2. No active intrathoracic disease. POS: [facility]
[2019-03-09] MEDS ORDERED: Aspirin Chewable 81 MG TAB ONE (10:25)
--- NOTE | 2019-03-09 10:47 | PDOC.FPRHP ---
- History of Present Illness Chief Complaint: Left facial weakness History of Present Illness: This is an 83 yo female with a pmh of CVA, CAD, HTN, HLD who presented to the ed with a cc of left sided lip swelling and numbness. She reports this started this morning, last normal was last night at 2230. She states calling the dentist and they advised her come into the hospital. She denies chest pain, sob , palpitations. She denies any other bodily weakness but does report generalized weakness due to not exercising. She reports increased problems with her BP in that they are elevated with SBP in the 200s at time. ED Course: Aspirin 324mg - Allergies/Adverse Reactions Allergies Allergy/AdvReac Type Severity Reaction Status Date / Time No Known Drug Allergies Allergy Verified 04/01/18 15:28 - Home Medications Medication Instructions Recorded Confirmed Type Aspirin 81 mg PO HS 05/21/14 03/09/19 History Carvedilol [Coreg] 12.5 mg PO BID 05/21/14 03/09/19 History Clopidogrel Bisulfate [Plavix] 75 mg PO DAILY 05/21/14 03/09/19 History Esomeprazole Magnesium [NexIUM] 40 mg PO DAILY 02/13/15 03/09/19 History ALPRAZolam [Xanax] 0.25 mg PO BID 07/10/16 03/09/19 History Rosuvastatin Calcium [Crestor] 20 mg PO MWF 03/13/18 03/09/19 History Lisinopril [Zestril] 7.5 mg PO BID 04/01/18 03/09/19 History - History PMHx: CAD, CVA, HTN, HLD, anxiety, GERD PSHx: CABG, EX lap for appendendectomy 1949, bladder surgery, rotator cuff FHx: Heart disease, brother has had 3 cardiac bypass Social: Minimal smoking history in college, denies D/A - Review of Systems General: denies: fever/chills, weight/appetite/sleep changes, night sweats, fatigue Eyes: denies: eye pain, vision changes ENT: reports: nasal congestion, rhinorrhea Respiratory: denies: cough, shortness of breath Cardiovascular: denies: chest pain, palpitation Gastrointestinal: denies: nausea, vomiting, diarrhea Skin: denies: rashes, lesions Musculoskeletal: denies: pain, tenderness, stiffness Neurological: reports: numbness, weakness. denies: syncope, seizure Psychological: reports: anxiety. denies: depression - Vital signs BP: 150/62 HR: 69 RR: 16 Tmax: 98.0 Pox: 69% on ra Wt: 61 kg - Physical Exam Constitutional: NAD, awake, alert and oriented, well developed HEENT: normocephalic and atraumatic, PERRLA, EOMI, conjunctiva clear, grossly normal hearing, MMM Neck: supple, FROM, trachea midline, no LAD, no JVD, no bruits Chest: no-tender to palpation, no lesions, other (Central scar from CABG) Heart: RRR, normal S1/S2, no murmurs/rubs/gallops, pulses present Lungs: CTAB, no respiratory distress, good air movement Abdomen: soft, non-tender, bowel sounds present, no masses/distention Musculoskeletal: normal structure, normal tone, ROM grossly normal Neurological: no focal deficit, CN II-XII intact, normal sensation, DTRs 2+ Skin: no rash/lesions, good turgor, capillary refill <2 seconds, no jaundice Heme/Lymphatic: no unusual bruising or bleeding, no purpura, no petechia Psychiatric: normal mood and affect, good judgment and insight, intact recent and remote memory FMR H&P: Results - Labs Result Diagrams: 03/09/19 09:13 03/10/19 04:43 Lab results: WBC 6.0 thou/uL (4.8-10.8) 03/09/19 09:13 Hgb 12.8 g/dL (12.0-16.0) 03/09/19 09:13 Hct 39.7 % (36.0-47.0) 03/09/19 09:13 MCV 97.3 fL (78.0-98.0) 03/09/19 09:13 Plt Count 247 thou/uL (130-400) 03/09/19 09:13 Neutrophils % 53.7 % (42.0-75.0) 03/09/19 09:13 Sodium 138 mmol/L (136-145) 03/09/19 09:13 Potassium 4.1 mmol/L (3.5-5.1) 03/09/19 09:13 Chloride 108 mmol/L (98-107) H 03/09/19 09:13 Carbon Dioxide 21 mmol/L (23-31) L 03/09/19 09:13 BUN 13 mg/dL (9.8-20.1) 03/09/19 09:13 Creatinine 0.97 mg/dL (0.6-1.1) 03/09/19 09:13 Glucose 136 mg/dL (83-110) H 03/09/19 09:13 Calcium 9.3 mg/dL (7.8-10.44) 03/09/19 09:13 Total Bilirubin 0.3 mg/dL (0.2-1.2) 03/09/19 09:13 AST 21 U/L (5-34) 03/09/19 09:13 ALT 14 U/L (8-55) 03/09/19 09:13 Alkaline Phosphatase 94 U/L (40-150) 03/09/19 09:13 Creatine Kinase 109 U/L (29-168) 03/09/19 09:13 Serum Total Protein 7.0 g/dL (6.0-8.3) 03/09/19 09:13 Albumin 3.7 g/dL (3.4-4.8) 03/09/19 09:13 - Radiology Interpretation Chest x-ray Status: report reviewed by me (No acute cardiopulmonary processes) CT scan - head Status: report reviewed by me (CTA Scattered atherosclerotic disease of the neck , and skull base, most pronounced at the distal left CCA , and left carotid bulb , with moderate to severe focal stenosis.) Other Status: report reviewed by me (CT head wo contrast 1. No acute intracranial abnormality. 2. Stable moderate chronic small vessel white matter ischemic change. 3. Mild paranasal sinus disease) FMR H&P: A/P - Problem List (1) TIA (transient ischemic attack) Current Visit: No Status: Acute Code(s): G45.9 - TRANSIENT CEREBRAL ISCHEMIC ATTACK, UNSPECIFIED (2) HFrEF (heart failure with reduced ejection fraction) Current Visit: No Status: Acute Code(s): I50.20 - UNSPECIFIED SYSTOLIC ( CONGESTIVE) HEART FAILURE (3) Vertigo Current Visit: No Status: Acute Priority: High Code(s): R42 - DIZZINESS AND GIDDINESS (4) CAD (coronary artery disease) Current Visit: No Status: Chronic Priority: Low Code(s): I25.10 - ATHSCL HEART DISEASE OF [place] CORONARY ARTERY W/O ANG PCTRS Qualifiers: Coronary Disease-Associated Artery/Lesion type: bypass graft [place] vs. transplanted heart: [place] heart Associated angina: without angina Qualified Code(s): I25.810 - Atherosclerosis of coronary artery bypass graft(s) without angina pectoris (5) Dyslipidemia Current Visit: No Status: Chronic Code(s): E78.5 - HYPERLIPIDEMIA, UNSPECIFIED (6) HTN (hypertension) Current Visit: No Status: Chronic Code(s): I10 - ESSENTIAL (PRIMARY) HYPERTENSION - Plan This is an 83 yo female with a pmh of HTN, HLD, CAD s/p CABG, CVA Concern for TIA -Admit to stroke obs -CT head shows no hemorrhagic changes -CTA head/neck shows left CCA and carotid bulb with atherosclerotic disease and stenosis -Outside TPA window -Pending MRI and Echo CAD w/ hx of CABG -Continue home aspirin, plavix, statin HTN -Continue home meds -Touch base with Dr. Jacobs, PCP regarding HTN HLD -As above Hx of CVA -As above Code: Full Prophylaxis: SCDs Family: none at bedside Diet: heart healthy Disposition: home in 1-2 days FMR H&P: Upper Level - Pertinent history HPI 83 y/o F with hx/o CABG, CVA presenting to ED with facial numbness. States it began during the night ~12hrs ago and described as numbness on her L upper and lower lips. She does not have dysphagia, extremity weakness, altered mentation, or difficulty ambulating. She denies recent sickness. No insect stings/bites or new food tried. REVIEW OF SYSTEMS: Gen: no fever, chills, or sweats, no unexplained wt change Neuro: no headaches, POS numbness/tingling, no weakness Eyes: no visual changes ENT: no hearing changes, no sore throat, no runny nose Resp: no cough, no SOB, no wheeze Card: no chest pain, no palpitations GI: no appetite change, no diarrhea or constipation, no nausea/vomiting, no blood in stool MSK: no myalgias, no joint pain/stiffness Heme: no frequent/easy bleeding Skin: no rash, no erythema Psych: no depression - Pertinent findings PHYSICAL EXAMINATION: General: NAD, alert and oriented x3 HEENT: small 5mm superficial ulcer in L inner buccal membrane. mild edema L lips and cheek. Heart/Cardiovascular System: No r/m/g. RRR. Cap refill < 3 seconds, good pulses in all extremities Lungs/Respiratory System: clear to auscultation bilaterally. No increased work of breathing. Room air. Abdomen/Gastro-Intestinal System: non-tender, normal bowel sounds, no masses, no organomegaly Neuro: R lower facial paralysis with altered sensation. No abnormal eye tests and speech intact. No focal defecits otherwise. Psychiatry: Awake, Alert and cooperative with exam Skin: No lesions, rashes, or ulcers Musculoskeletal: Full ROM, Strength 5/5 in all 4 extremities - Plan Date/Time: 03/09/19 1042 I, Alexander Rodriguez, have evaluated this patient and agree with findings/plan as outlined by regulatory affairs internship resident. Pertinent changes/additions are listed here. PROBLEM LISTANDPLAN: # Facial Paralysis Pt with hx/o CVA and CV disease and at high risk. CT negative, but will continue workup to r/o acute CVA. Also consider possibility of a local reaction (allergic, traumatic, etc) given she has a small ulcer inside of affected cheek and has some localized swelling. On antiplatelet and high intensity statin already and will continue. Pt/OT/ST eval. # Apthous Ulcer- Lidocaine mouthwash. # CAD- Continue DAPT. No acute chest pain and RRR. # HTN- Pt reports this is difficult to control and PCP is considering renal artery studies. Will allow permissive HTN as we cannot r/o CVA at this time and monitor closely. # Hx/o CVA- As above. Addendum - Attending - Attending Attestation Date/Time: 03/10/19 0815 I personally evaluated the patient and discussed the management with Dr. Whittington at time of admission. I agree with the History, Examination, Assessment and Plan documented above with any addition or exceptions noted below. At the time of my exam, there was no motor deficits. However, subtle swelling of the uper adn lower left lips was noted on careful inspection. No lesions noted. etiology unclear. May be unusual presentation of [place].
[2019-03-09] MEDS ORDERED: ISOVUE-370 76%-LOCM 1 ML ONE (13:01)
[2019-03-09] MEDS ORDERED: Ondansetron PF 4 MG/2 ML Vial IVP PRN (13:38)
[2019-03-09] MEDS ORDERED: Acetaminophen 325 MG TAB PO PRN (13:39)
[2019-03-09] MEDS ORDERED: Ondansetron ODT 4 MG TAB PO PRN (13:39)
[2019-03-09] MEDS ORDERED: Acetaminophen 650 MG Suppository PR PRN (14:02)
[2019-03-09] MEDS ORDERED: Labetalol HCl 100 MG/20 ML VIAL SLOW IVP PRN (14:02)
[2019-03-09] MEDS ORDERED: hydrALAZINE 20 MG/ML VIAL SLOW IVP PRN (14:02)
[2019-03-09 14:06] LABS: Troponin I Less than 0.010 ng/mL (< 0.028)
[2019-03-09 14:26] VITALS: BMI 25.3
[2019-03-09 16:27] LABS: Troponin I Less than 0.010 ng/mL (< 0.028)
[2019-03-09] MEDS: Acetaminophen 325 MG TAB PO PRN (17:07)
--- NOTE | 2019-03-09 17:12 | MRI ---
MRI brain noncontrast HISTORY: Left facial droop. Altered mental status. COMPARISON: 04/01/2018. FINDINGS: There is no evidence of acute intracranial hemorrhage or infarct. Diffuse cortical atrophy and prominent bilateral chronic ischemic small vessel disease are similar in appearance to the prior exam. There is no mass effect or shift of midline structures. Prominent mucosal thickening and fluid now evident within the right maxillary sinus. IMPRESSION: Prominent chronic ischemic small vessel disease and other chronic-type findings are stabl e. No acute intracranial abnormalities are demonstrated. Right maxillary sinusitis.
[2019-03-09] MEDS ORDERED: Famotidine 20 MG TAB PO SCH (21:00)
[2019-03-09] MEDS: Carvedilol 6.25 MG TAB PO SCH (21:04)
[2019-03-09] MEDS: ALPRAZolam 0.25 MG TAB PO SCH (21:04)
[2019-03-09] MEDS: Lisinopril 5 MG TAB PO SCH (21:05)
[2019-03-10] MEDS: Acetaminophen 325 MG TAB PO PRN ×2 (02:21→16:02)
[2019-03-10 05:38] LABS: Anion Gap 12 mmol/L (10-20); BUN (Urea Nitrogen) 13 mg/dL (9.8-20.1); Calc. Creatinine Clearance 59 mL/min (70-130); Carbon Dioxide 21 mmol/L (23-31); Cardiac Risk 2.1 (Less than 4.5); Chloride 108 mmol/L (98-107); Cholesterol 103 mg/dl (< 200 Desired); Estimated GFR-MDRD 66; Glucose 81 mg/dL (83-110); HDL Cholesterol 50 mg/dL (>60 Neg Risk); LDL Cholesterol, Calculated 40 mg/dL; Potassium 3.9 mmol/L (3.5-5.1); Sodium 137 mmol/L (136-145); Triglycerides 66 mg/dL (Less than 150)
--- NOTE | 2019-03-10 06:15 | PDOC.FM ---
- Subjective Subjective: NAEO. Pt reports her lip is feeling near normal this morning. She denies any weakness, numbness, or tingling. - Objective MAR Reviewed: Yes Vital Signs & Weight: Vital Signs (12 hours) Temp Pulse Resp BP BP Pulse Ox 03/10/19 04:00 97.6 F 52 L 16 131/61 95 03/10/19 00:00 97.7 F 54 L 16 127/59 L 96 03/09/19 21:05 57 L 135/64 03/09/19 21:04 135/64 03/09/19 20:00 97.7 F 57 L 18 135/64 97 Weight Weight 71.299 kg I&O: 03/08/19 03/09/19 03/10/19 06:59 06:59 06:59 Intake Total 300 Balance 300 Result Diagrams: 03/09/19 09:13 03/10/19 04:43 Phys Exam - Physical Examination Constitutional: NAD HEENT: moist MMs Neck: no JVD, full ROM Respiratory: no wheezing, clear to auscultation bilateral Cardiovascular: RRR, no significant murmur Gastrointestinal: soft, non-tender, no distention, positive bowel sounds Musculoskeletal: no edema, pulses present Neurological: non-focal, normal sensation, moves all 4 limbs Exam unchanged from yesterday, lip is less swollen and sensation is normal Psychiatric: A&O x 3 Skin: cap refill <2 seconds Dx/Plan (1) TIA (transient ischemic attack) Code(s): G45.9 - TRANSIENT CEREBRAL ISCHEMIC ATTACK, UNSPECIFIED Status: Acute (2) HFrEF (heart failure with reduced ejection fraction) Code(s): I50.20 - UNSPECIFIED SYSTOLIC (CONGESTIVE) HEART FAILURE Status: Acute (3) Vertigo Code(s): R42 - DIZZINESS AND GIDDINESS Status: Acute (4) CAD (coronary artery disease) Code(s): I25.10 - ATHSCL HEART DISEASE OF [place] CORONARY ARTERY W/O ANG PCTRS Status: Chronic Qualifiers: Coronary Disease-Associated Artery/Lesion type: bypass graft [place] vs. transplanted heart: [place] heart Associated angina: without angina Qualified Code(s): I25.810 - Atherosclerosis of coronary artery bypass graft(s) without angina pectoris (5) Dyslipidemia Code(s): E78.5 - HYPERLIPIDEMIA, UNSPECIFIED Status: Chronic (6) HTN (hypertension) Code(s): I10 - ESSENTIAL (PRIMARY) HYPERTENSION Status: Chronic - Plan Plan: This is an 83 yo female with a pmh of HTN, HLD, CAD s/p CABG, CVA Concern for TIA -CT head shows no hemorrhagic changes -CTA head/neck shows left CCA and carotid bulb with atherosclerotic disease and stenosis -Outside TPA window -MRI negative for acute ischemia, pending Echo and will likely discharge after this is taken -FLP: LDL 50, HDL 40 CAD w/ hx of CABG -Continue home aspirin, plavix, statin HTN -Continue home meds -Touch base with Dr. Jacobs, PCP regarding HTN HLD -As above Hx of CVA -As above Addendum - Attending - Attending Attestation Date/Time: 03/10/19 1049 I personally evaluated the patient and discussed the management with Dr. Whittington. I agree with the History, Examination, Assessment and Plan documented above with any addition or exceptions noted below. Patient here for lip paresthesias and swelling and concern for TIA/CVA given history of CVA. Her imaging workup has been negative. Stable for discharge today with follow up with her outpatient PCP and CV surgeon.
[2019-03-10] MEDS ORDERED: Rosuvastatin 20 MG TAB PO SCH (09:00)
[2019-03-10] MEDS ORDERED: Clopidogrel Bisulfate 75 MG TAB PO SCH (09:00)
[2019-03-10] MEDS: Lisinopril 5 MG TAB PO SCH (09:11)
[2019-03-10] MEDS: Carvedilol 6.25 MG TAB PO SCH (09:12)
[2019-03-10] MEDS: ALPRAZolam 0.25 MG TAB PO SCH (09:12)
--- NOTE | 2019-03-10 13:26 | CT ---
"PRELIMINARY REPORT" CTA of the head with and without IV contrast and 3-D reformatted imaging. CTA of the neck with IV contrast and 3-D reformatted imaging 3 D Volume Rendering: DATE: 03/09/2019 9:15 AM HISTORY: Altered mental status, stroke COMPARISON: None FINDINGS: Right: CCA:Mild stenosis distally due to calcific plaque ICA: Limited by degree of motion. Calcific plaque at the bulb results in mild stenosis. Mild calcific ation, within the distal, intracranial aspect. MCA:No significant stenosis. LINDA:No significant stenosis. WEEKDAY BABYSITTER:No significant stenosis. LEFT: CCA:Moderate to severe stenosis at the distal aspect, just proximal to the bulb as result of bulky ca lcific plaque ICA:Moderate focal stenosis of the carotid bulb. Prominent distortion by motion. Mild calcific plaque at the distal, intracranial aspect MCA:No significant stenosis. LINDA:No significant stenosis. WEEKDAY BABYSITTER:No significant stenosis. Vertebrobasilar System: Left Vertebral:No significant stenosis. Right Vertebral:No significant stenosis. Basilar:No significant stenosis. IMPRESSION: Scattered atherosclerotic disease of the neck, and skull base, most pronounced at the distal left CCA , and left carotid bulb, with moderate to severe focal stenosis. Telephone call findings placed to ER physician Ken Mcgarry, 0940 hours. Code CR Transcribed Date/Time: 03/10/2019 1:25 PM
[2019-03-10 16:03] VITALS: BP 161/71; TEMP 97.9
[2019-03-10] MEDS ORDERED: Aspirin Chewable 81 MG TAB PO SCH (21:00)
[2019-03-10] MEDS ORDERED: Famotidine 20 MG TAB PO SCH (21:00)
--- NOTE | 2019-03-11 11:00 | DIS ---
DATE OF ADMISSION: 03/09/2019 DATE OF DISCHARGE: 03/10/2019 ADMITTING ATTENDING: Dr. Kian Springer. DISCHARGING ATTENDING: Dr. Trevor Oliver. RESIDENT: Bishop Whittington DO CONSULT: None. PROCEDURES: 1. Brain MRI showing prominent chronic ischemic small-vessel disease and other chronic-type findings are stable. No acute intracranial abnormalities. 2. CT of the head and neck with and without contrast showing scattered atherosclerotic disease of the neck and skull base, most prominent at the distal left CCA and left carotid bulbs with [id number] focal stenosis. 3. Brain CT showed no acute intracranial abnormalities, stable moderate chronic small-vessel disease. 4. PA and lateral chest x-ray showing mild cardiomegaly, no intrathoracic disease. 5. Echocardiogram showing ejection fraction of 45 to 50%, E/A flow reversal noted, suggestive of diastolic dysfunction, left atrium is mildly dilated, moderate aortic insufficiency, moderate pulmonary hypertension. PRIMARY DIAGNOSIS: Local reaction due to trauma versus transient ischemic attack. 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 DISCONTINUED MEDICATIONS: None. DISCHARGE MEDICATIONS: 1. Xanax 0.25 mg p.o. b.i.d. 2. Aspirin 81 mg p.o. at bedtime. 3. Carvedilol 12.5 mg p.o. b.i.d. 4. Clopidogrel 75 mg p.o. daily. 5. Omeprazole 40 mg p.o. daily. 6. Lisinopril 7.5 mg p.o. b.i.d. 7. Atorvastatin 20 mg Friday, Friday, Friday. HISTORY OF PRESENT ILLNESS/HOSPITAL COURSE: This is an 83-year-old female with past medical history of hyperlipidemia, hypertension, CAD status post CABG, who presents to the ED with a chief complaint lip swelling and numbness. She reports that it started this morning, last normal was last night approximately 10:30. The patient reports calling dentist and they advised her to come to the hospital. Due to patient's history, the patient was admitted to the hospital, worked up for stroke. Workup was negative. The pertinent physical findings include small ulcer on the inside of her lower lip, likely not representing the overall clinical picture. The patient had fair dentition with no concern for abscess causing this finding. With a negative MRI, the patient was likely experiencing TIA versus a local reaction due to mild trauma or allergic reaction. At the time of discharge, the patient was stable and asymptomatic. DISPOSITION: Stable. DISCHARGE INSTRUCTIONS: 1. Location: Home. 2. Diet: Heart healthy. 3. Activity: As tolerated. 4. Follow up with Dr. Austin Jacobs in 1-2 weeks. Job ID: [id number]
== END 2019-03-10 17:39 | disposition home or self-care (01) ==
LOC: ERS 09:03 → ERHOLD 10:43 → 2SE 13:24
PROVIDERS: ADMIT Student in an Organized Health Care Education/Training Program; ATTEND Student in an Organized Health Care Education/Training Program
DX: R29.810 Facial weakness (principal); R20.0 Anesthesia of skin; I25.10 Atherosclerotic heart disease of native coronary artery without angina pectoris; E78.5 Hyperlipidemia, unspecified; F41.9 Anxiety disorder, unspecified; K21.9 Gastro-esophageal reflux disease without esophagitis; I11.0 Hypertensive heart disease with heart failure; I50.21 Acute systolic (congestive) heart failure; R42 Dizziness and giddiness; K12.0 Recurrent oral aphthae; I65.22 Occlusion and stenosis of left carotid artery; Z86.73 Personal history of transient ischemic attack (TIA), and cerebral infarction without residual deficits; Z87.891 Personal history of nicotine dependence; Z79.02 Long term (current) use of antithrombotics/antiplatelets; Z79.82 Long term (current) use of aspirin; Z79.899 Other long term (current) drug therapy; Z95.1 Presence of aortocoronary bypass graft
CPT/HCPCS: 70450; 70496; 70498; 70551; 71045; 80048; 80053; 80061; 82550; 82962; 84484 ×2; 85025; 85610; 85730; 93005; 93306; 94760; 99285; G0378 ×2; 36415; 36416; Q9966

== ENCOUNTER 2019-05-05 12:52 | Outpatient (CLI) | payer MEDICARE ==
--- NOTE | 2019-05-05 14:07 | MMO ---
Bilateral MAMMO Bilat Screen [facility]. CLINICAL HISTORY: Patient is 83 years old and is seen for screening. The patient has the following family history of breast cancer: paternal aunt, 70'S. The patient has no personal history of cancer. VIEWS: The views performed were: bilateral craniocaudal with tomosynthesis and bilateral mediolateral oblique with tomosynthesis. FILMS COMPARED: The present examination has been compared to prior imaging studies performed at [facility] on 02/13/2017, and at [facility] on 05/01/2006, 10/09/2007 and 08/03/2009. MAMMOGRAM FINDINGS: There are scattered fibroglandular densities. There are stable benign appearing calcifications seen in both breasts. There are no suspicious masses, suspicious calcifications, or new areas of architectural distortion. IMPRESSION: THERE IS NO MAMMOGRAPHIC EVIDENCE OF MALIGNANCY. A ROUTINE FOLLOW-UP MAMMOGRAM IN 1 YEAR IS RECOMMENDED. THE RESULTS OF THIS EXAM WERE SENT TO THE PATIENT. ACR BI-RADS Category 2 - Benign finding MAMMOGRAPHY NOTE: 1. A negative mammogram report should not delay a biopsy if a dominant of clinically suspicious mass is present. 2. Approximately 10% to 15% of breast cancers are not detected by mammography. 3. Adenosis and dense breasts may obscure an underlying neoplasm.
== END 2019-05-05 12:53 | disposition home or self-care (01) ==
LOC: BICMAMMO 12:52
PROVIDERS: ATTEND Internal Medicine
DX: Z12.31 Encounter for screening mammogram for malignant neoplasm of breast (principal); Z80.3 Family history of malignant neoplasm of breast
CPT/HCPCS: 77063; 77067

== ENCOUNTER 2019-09-09 10:15 | Outpatient (CLI) | payer MEDICARE ==
--- NOTE | 2019-09-09 11:32 | RAD ---
Exam: Right RIBS 2 views: HISTORY: Chest wall pain FINDINGS: Postop midline sternotomy. No evidence for an acute rib fracture. No pneumothorax or pleural effusion . Bony demineralization. IMPRESSION: Bony demineralization. No convincing evidence for acute rib fracture. No pneumothorax pleural effusion or other acute process.
== END 2019-09-09 10:16 | disposition home or self-care (01) ==
LOC: SCSRAD 10:15
PROVIDERS: ATTEND Internal Medicine
DX: R07.89 Other chest pain (principal); M81.0 Age-related osteoporosis without current pathological fracture

== ENCOUNTER 2022-05-08 15:49 | Outpatient (CLI) | payer MEDICARE | END 2022-05-08 15:50 | disposition home or self-care (01) | LOC: CTENTCT 15:49 | PROVIDERS: ATTEND Specialist | DX: J33.9 Nasal polyp, unspecified (principal) | CPT/HCPCS: 70486 ==

== ENCOUNTER 2022-11-25 11:41 | Outpatient (CLI) | payer MEDICARE | END 2022-11-25 11:42 | disposition home or self-care (01) | LOC: BICMAMMO 11:41 | PROVIDERS: ATTEND Family Medicine | DX: Z12.31 Encounter for screening mammogram for malignant neoplasm of breast (principal); Z80.3 Family history of malignant neoplasm of breast | CPT/HCPCS: 77063; 77067 ==